=== PATIENT | male | born 1990 | race American Indian/Alaskan Native ===

== ENCOUNTER 2024-07-13 02:29 | Emergency (ER) | payer BC, OTHER | END 2024-07-13 03:52 | disposition home or self-care (01) | LOC: DL.ED 02:29 | DX: R04.0 Epistaxis (principal); I10 Essential (primary) hypertension; F17.200 Nicotine dependence, unspecified, uncomplicated; Z88.0 Allergy status to penicillin; Z79.899 Other long term (current) drug therapy | CPT/HCPCS: 71046; 99284 ==